=== PATIENT | female | born 1985 | race Caucasian/White ===

== ENCOUNTER 2023-12-14 15:17 | Emergency (ER) | payer BC ==
[~2023-12-14] VITALS: Ht 172.7 cm; Wt 66.2 kg
[2023-12-14] MEDS ORDERED: CYCLOBENZAPRINE 10 MG TABLET ONE (16:33)
[2023-12-14] MEDS ORDERED: IBUPROFEN 600 MG TABLET ONE (16:33)
[2023-12-14] MEDS: CYCLOBENZAPRINE 10 MG TABLET PO ONE (16:36)
[2023-12-14] MEDS: IBUPROFEN 600 MG TABLET PO ONE (16:37)
[2023-12-14 18:30] VITALS: BP 119/84; TEMP 98.9; O2SAT 99
[2023-12-14] MEDS ORDERED: CYCL5TAB PO (19:26)
[2023-12-14] MEDS ORDERED: IBUP-1955 PO (19:26)
== END 2023-12-14 20:35 | disposition home or self-care (01) ==
LOC: ER 15:21
DX: M54.2 Cervicalgia (principal); M54.6 Pain in thoracic spine; G43.909 Migraine, unspecified, not intractable, without status migrainosus; F41.9 Anxiety disorder, unspecified; V49.9XXA Car occupant (driver) (passenger) injured in unspecified traffic accident, initial encounter; Y93.89 Activity, other specified; Y92.89 Other specified places as the place of occurrence of the external cause; Y99.8 Other external cause status
CPT/HCPCS: 72040-TC; 72070-TC